=== PATIENT | female | born 1995 | race African-American/Black ===

== ENCOUNTER 2018-04-30 13:47 | Outpatient (CLI) | payer MEDICAID ==
[~2018-04-30 13:47] MED LIST: FERRIC CARBOXYMALTOSE 750 MG in NORMAL SALINE 250 ML IV PRN
[2018-04-30 14:08] VITALS: BP 114/68
== END 2018-04-30 15:45 | disposition home or self-care (01) ==
LOC: II 13:47 → 5TH 13:52 → II 15:45
PROVIDERS: ATTEND Obstetrics & Gynecology Gynecology
DX: O99.013 Anemia complicating pregnancy, third trimester (principal); Z3A.00 Weeks of gestation of pregnancy not specified
CPT/HCPCS: 96367; G0008; J7050; J1439; 90471

== ENCOUNTER 2018-05-07 13:50 | Outpatient (CLI) | payer MEDICAID ==
[2018-05-07 14:08] VITALS: BP 100/50
== END 2018-05-07 14:38 | disposition home or self-care (01) ==
LOC: II 13:50 → 5TH 14:01 → II 14:38
PROVIDERS: ATTEND Obstetrics & Gynecology Gynecology
PROC: 3E033GC Introduction of Other Therapeutic Substance into Peripheral Vein, Percutaneous Approach (ICD-10-PCS; principal; 2018-05-07)
DX: O99.013 Anemia complicating pregnancy, third trimester (principal)
CPT/HCPCS: 96365; J7050; J1439

== ENCOUNTER 2018-05-27 05:33 | Inpatient (IN) | payer MEDICAID ==
[2018-05-24 10:41] LABS: APPEARANCE,URINE SLIGHTLY-CLOUDY; BILIRUBIN,URINE NEGATIVE (NEGATIVE); COLOR,URINE YELLOW; GLUCOSE, URINE NEGATIVE (NEGATIVE); KETONES,URINE NEGATIVE (NEGATIVE); LEUKOCYTE ESTERASE,URINE TRACE (NEGATIVE); NITRITE,URINE NEGATIVE (NEGATIVE); PROTEIN,URINE NEGATIVE (NEGATIVE); URINE SPECIFIC GRAVITY 1.013; UROBILINOGEN,URINE NEGATIVE mg/dL (<2.0)
[2018-05-24 11:18] LABS: URINE AMPHETAMINES SCREEN NEGATIVE; URINE BARBITURATES SCREEN NEGATIVE; URINE BENZODIAZEPINES SCREEN NEGATIVE; URINE COCAINE SCREEN NEGATIVE; URINE MARIJUANA (THC) SCREEN NEGATIVE; URINE METHADONE SCREEN NEGATIVE; URINE PHENCYCLIDINE SCREEN NEGATIVE
[2018-05-24 12:23] LABS: CHLAM PCR NOT DETECTED (NOT DETECT); GON PCR NOT DETECTED (NOT DETECT)
[2018-05-25 11:05] LABS: ABSOLUTE EOSINOPHILS # (AUTO) 0.1 10^3/uL (0.0-0.6); ABSOLUTE LYMPHOCYTES (AUTO) 1.5 10^3/uL (0.5-4.7); ABSOLUTE MONOCYTES (AUTO) 0.6 10^3/uL (0.1-1.4); ABSOLUTE NEUT (AUTO) 3.6 10^3/uL (1.7-8.2); BASOPHILS % (AUTO) 0.5 % (0-2); EOSINOPHILS % (AUTO) 1.5 % (0-6); HEMATOCRIT 33.1 % (36.0-47.0); HEMOGLOBIN 10.7 g/dL (12.0-15.5); LYMPHOCYTES % (AUTO) 25.2 % (13-45); MEAN CORPUSCULAR HEMOGLOBIN 25.4 pg (27.0-33.4); MEAN CORPUSCULAR HGB CONC 32.4 g/dL (32.0-36.0); MEAN CORPUSCULAR VOLUME 79 fl (80-97); MONOCYTES % (AUTO) 11.1 % (3-13); PLATELET COUNT 220 10^3/uL (150-450); RED BLOOD COUNT 4.22 10^6/uL (3.72-5.28); RED CELL DISTRIBUTION WIDTH 21.8 % (11.5-14.0); SEGMENTED NEUTROPHILS % (AUTO) 61.7 % (42-78); TOTAL CELLS COUNTED % (AUTO) 100 %; WHITE BLOOD COUNT 5.8 10^3/uL (4.0-10.5)
[~2018-05-27 05:33] MED LIST changes: -FERRIC CARBOXYMALTOSE 750 MG in NORMAL SALINE 250 ML IV PRN; +LACTATED RINGERS 1000 ML IV PRN; +LIDOCAINE 0.5% INJ-PF (5 MG/ML) 50 ML SDV SUBCUT PRN
[2018-05-27] MEDS ORDERED: CEFAZOLIN 1 GM/D5W RTU 1 GM/50 ML RTUPB IV ONE (05:42)
[2018-05-27] MEDS ORDERED: FENTANYL CITRATE INJ/PF 100 MCG/2 ML AMPUL ONE (07:33)
[2018-05-27] MEDS ORDERED: OXYTOCIN 10 UNIT/ML VIAL ONE (07:33)
[2018-05-27] MEDS ORDERED: OXYTOCIN/NORMAL SALINE 20 UNIT/1,000 ML RTUINJ ONE (07:34)
[2018-05-27] MEDS ORDERED: MORPHINE SULFATE 10 MG/ML INJ ONE (07:34)
[2018-05-27] MEDS ORDERED: MIDAZOLAM 2 MG/2 ML INJ ONE (07:34)
[2018-05-27] MEDS ORDERED: ONDANSETRON HCL INJ/PF 4 MG/2 ML SDV ONE (07:34)
[2018-05-27] MEDS ORDERED: BUPIVACAINE HCL/DEX-WATER/PF 15 MG/2 ML AMPULE ONE (07:40)
[2018-05-27] MEDS ORDERED: FENTANYL CITRATE INJ/PF 100 MCG/2 ML AMPUL IV PRN ×3 (08:17)
[2018-05-27] MEDS ORDERED: MEPERIDINE HCL/PF INJ 25 MG/1 ML DISP.SYRIN IV PRN (08:17)
[2018-05-27] MEDS ORDERED: PROMETHAZINE HCL INJ 25 MG/1 ML VIAL IV PRN ×3 (08:17→09:01)
[2018-05-27] MEDS ORDERED: DIPHENHYDRAMINE HCL 50 MG/ML VIAL IV PRN (08:17)
[2018-05-27] MEDS ORDERED: MORPHINE SULFATE 10 MG/ML INJ IV PRN (08:17)
[2018-05-27] MEDS ORDERED: ACETAMINOPHEN 1,000 MG/100 ML RTUPB IV PRN (09:01)
[2018-05-27] MEDS ORDERED: MEASLES,MUMPS&RUBELLA VACC/PF 0.5 ML VIAL SUBCUT PRN (09:01)
[2018-05-27] MEDS ORDERED: DIPH/PERTUSS(ACELL)/TETANUS VAC/PF 0.5 ML SYR (>=10YO) IM PRN (09:01)
[2018-05-27] MEDS ORDERED: OXYCODONE-ACETAMINOPHEN 5-325 MG TABLET PO PRN (09:01)
[2018-05-27] MEDS ORDERED: OXYTOCIN/NORMAL SALINE 20 UNIT/1,000 ML RTUINJ IV PRN (09:01)
[2018-05-27] MEDS ORDERED: SIMETHICONE 80 MG TAB.CHEW PO PRN (09:01)
[2018-05-27] MEDS ORDERED: RINGERS SOLUTION,LACTATED 1,000 ML IV PRN (09:01)
[2018-05-27] MEDS ORDERED: ACETAMINOPHEN 325 MG TABLET PO PRN (09:01)
[2018-05-27] MEDS ORDERED: ACETAMINOPHEN 1,000 MG/100 ML RTUPB IV ONE (09:38)
[2018-05-27] MEDS ORDERED: MEPERIDINE HCL/PF INJ 25 MG/1 ML DISP.SYRIN ONE (10:40)
--- NOTE | 2018-05-27 11:11 | PDOC DELIVERY SUMMARY ---
Delivery Summary - Maternal Hx : V Hx Para: II Hx # Term Pregnancies: 2 Hx # Pregnancies: 0 Hx Total # of Abortions (Sponateous & Elective): 2 CRIS: 05/30/18 Gestational Age: 39.2 Risk Factors: Previous Ruptured Membranes: AROM Fluids: Clear - Delivery Labor: Not In Labor Presentation: Vertex Heart Rate Monitoring: Done Pre-Operatively Support Person Present: Yes Location: OR : Scheduled Placenta: Within Normal Limits Delivery of Placenta Date: 05/27/18 Delivery of Placenta Time: 08:10 - Medications Type of Anesthesia:: Spinal - Assess and Care Baby 1 Male Delivery of Infant Date: 05/27/18 Delivery of Infant Time: 08:10 at 1 minute: 8 at 5 minutes: 9 Preprinted Number On Band: [id number] Infant Skin to Skin: Yes Skin to Skin (Mins): 5 To Nursery At: 08:21 Mode of Transport: Bassinet Delivery Weight: 3,305 Delivery Length: 19.75 in - Delivery Personnel Sales Promotion Manager: TISH MUJICA Nursery RN: TOMER IRVING Nursery RN: SUMIT RN: SCOTT MCLEOD MD: DIPAK HALL
[2018-05-27] MEDS: PRENATAL VITAMIN W DHA CAPSULE PO SCH (11:42)
[2018-05-27] MEDS: DOCUSATE SODIUM 100 MG CAPSULE PO SCH ×2 (11:43→17:15)
[2018-05-27] MEDS: KETOROLAC TROMETHAMINE INJ/PF 30 MG/1 ML SDV IV SCH ×2 (11:50→17:15)
[2018-05-27] MEDS: MORPHINE SULFATE 10 MG/ML INJ IV PRN ×2 (11:51→22:22)
--- NOTE | 2018-05-27 12:02 | OPERATIVE REPORT E ---
Operative Report NAME: JOEL JOSE : 1995 AGE: 22Y DATE OF SURGERY: 05/27/2018 ROOM: 212 PREOPERATIVE DIAGNOSES: 1. IUP at 39 weeks and 2 days. 2. Previous x2. POSTOPERATIVE DIAGNOSES: 1. IUP at 39 weeks and 2 days. 2. Previous x2. SURGEON: DIPAK HALL M.D. ANESTHESIA: Dr. Bergman with spinal. FINDINGS: Male in cephalic presentation with Apgars of 8 and 9. Very thin lower uterine segment constituting a uterine window. The fascia was also very thin. Bladder flap was adhered high on the lower uterine segment as well. COMPLICATIONS: None. ESTIMATED BLOOD LOSS: 600 mL. SPECIMENS REMOVED: None. PROCEDURE: A low transverse hysterotomy section, repeat. PROCEDURE IN DETAIL: The patient was taken to the operating room and prepared and draped in a normal sterile fashion in the supine position with a leftward tilt. A transverse skin incision was made with a scalpel following the patient's previous scar and the underlying layer of fascia was nicked in the center with a scalpel and extended laterally with Painter's. The fascia was dissected from the rectus muscle sharply with Painter's and the rectus muscle was divided bluntly. The peritoneal cavity was entered bluntly with surgeon finger fracture. The bladder blade was inserted. The uterine window was noted. The bladder was dissected away from the lower uterine segment using Metzenbaum's and blunt dissection. The bladder blade was reinserted. The hysterotomy was nicked with a scalpel and extended laterally with surgeon finger fracture. The infant was then delivered atraumatically. The nose and mouth were suctioned with a suction bulb and the cord was clamped and cut and handed off to awaiting pediatricians. Cord blood was collected. The placenta was removed manually. The uterus was exteriorized and cleared of clots and debris. The hysterotomy was closed with 0 Monocryl in a running, locked fashion and a second layer of the same suture was used to imbricate to ensure hemostasis. The uterus was returned to the abdomen. The hysterotomy was covered with a layer of Interceed to help prevent further adhesions. The rectus muscle and peritoneum were reapproximated with a mattress stitch of 2-0 Chromic. The fascia was closed with 0 Vicryl. The subcutaneous layer was closed with plain catgut and the skin was closed with 4-0 Vicryl. The patient tolerated the procedure well. Sponge, lap, and needle counts were correct x2 and the patient was taken to recovery in stable condition. DICTATING PHYSICIAN: DIPAK HALL M.D. [id number] PHY#: [id number] ID: [id number] JOB#: [id number] ACCT: [id number] cc:DIPAK HALL M.D. >
[2018-05-28] MEDS: OXYCODONE-ACETAMINOPHEN 5-325 MG TABLET PO PRN ×3 (02:10→19:17)
[2018-05-28] MEDS: KETOROLAC TROMETHAMINE INJ/PF 30 MG/1 ML SDV IV SCH (02:10)
[2018-05-28 06:28] LABS: HEMATOCRIT 32.8 % (36.0-47.0); HEMOGLOBIN 10.5 g/dL (12.0-15.5); MEAN CORPUSCULAR HEMOGLOBIN 25.3 pg (27.0-33.4); MEAN CORPUSCULAR HGB CONC 32.1 g/dL (32.0-36.0); MEAN CORPUSCULAR VOLUME 79 fl (80-97); PLATELET COUNT 200 10^3/uL (150-450); RED BLOOD COUNT 4.17 10^6/uL (3.72-5.28); RED CELL DISTRIBUTION WIDTH 21.3 % (11.5-14.0); WHITE BLOOD COUNT 9.5 10^3/uL (4.0-10.5)
--- NOTE | 2018-05-28 09:25 | PDOC PROGRESS REPORT ---
Subjective-OB Progress Note for:: 05/28/18 - POD #1 s/p Rpt . Doing well, no complaints. , Physical Exam (OB) Vital Signs: Temp Pulse Resp BP Pulse Ox 98.0 F 80 16 110/62 100 05/28/18 09:00 05/28/18 09:00 05/28/18 09:00 05/28/18 09:00 05/28/18 09:00 Intake & Output 05/27/18 05/28/18 05/29/18 06:59 06:59 06:59 Intake Total 1408 Output Total 1945 Balance -537 Weight 65.1 kg 61.7 kg - General General Appearance: Appears well, Alert In distress: None - PIH/Pre-Eclampsia DTR's: 1 + Clonus: Negative Headache: Absent Epigastric Pain: No Visual Changes: No - Dressing Removed: No Incision: Dressing, Well Approximated Closure Type: Surgical Glue - Lochia Lochia Amount: Small 10-25 ml Lochia Color: Rubra/Red - Abdomen Description: Tender, Soft, Round Hernia Present: No Fundal Description: Firm, Midline Fundal Height: u/3 - u/4 Abdomen Note: +bowel sounds - Respiratory Respiratory Status: No respiratory distress Breath sounds: Clear Chest Palpation: Normal - Cardiovascular Rhythm: Regular Heart Sounds: Normal auscultation - Abdominal Inspection: Normal Distension: No distension Tenderness: Nontender Organomegaly: No organomegaly - Genitourinary Genitourinary Note: voiding - Extremities Upper extremity: Normal inspection Lower extremities: Normal inspection - Neurological Cognition: Normal Orientation: AAOx4 - Psychological Associated symptoms: Normal affect, Normal mood - Skin Skin Temperature: Warm Skin Moisture: Dry Objective-Diagnostic Laboratory: 05/28/18 06:20 05/28/18 06:20 WBC 9.5 RBC 4.17 Hgb 10.5 L Hct 32.8 L MCV 79 L MCH 25.3 L MCHC 32.1 RDW 21.3 H Plt Count 200 Assessment and Plan(PN) - Assessment and Plan (1) Status post repeat low transverse section Is this a current diagnosis for this admission?: Yes (2) Normal course Is this a current diagnosis for this admission?: Yes - Time Spent with Patient Time with patient: Less than 15 minutes Medications reviewed and adjusted accordingly: Yes - Disposition Anticipated Discharge: Home Within: within 48 hours
[2018-05-28] MEDS: IBUPROFEN 800 MG TABLET PO SCH ×3 (10:36→21:21)
[2018-05-28] MEDS: PRENATAL VITAMIN W DHA CAPSULE PO SCH (10:36)
[2018-05-28] MEDS: DOCUSATE SODIUM 100 MG CAPSULE PO SCH ×2 (10:37→17:30)
[2018-05-29] MEDS: IBUPROFEN 800 MG TABLET PO SCH ×3 (03:42→14:18)
[2018-05-29] MEDS: OXYCODONE-ACETAMINOPHEN 5-325 MG TABLET PO PRN (03:43)
[2018-05-29] MEDS: DOCUSATE SODIUM 100 MG CAPSULE PO SCH (09:53)
[2018-05-29] MEDS: PRENATAL VITAMIN W DHA CAPSULE PO SCH (09:54)
--- NOTE | 2018-05-29 10:06 | PDOC DISCHARGE SUMMARY ---
Final Diagnosis Discharge Date: 05/29/18 - Final Diagnosis (1) Normal course Is this a current diagnosis for this admission?: Yes (2) Status post repeat low transverse section Is this a current diagnosis for this admission?: Yes Discharge Data - Discharge Medication Prescriptions: Oxycodone HCl/Acetaminophen [Percocet 5-325 mg Tablet] 1 tab PO Q4HP PRN #30 tablet PRN Reason: Ibuprofen [Motrin 800 mg Tablet] 800 mg PO Q8HP PRN #60 tablet PRN Reason: Home Medications: Vits96/Iron Fum/Folic [ Tablet] 1 each PO DAILY 10/01/13 Ferrous Sulfate [Iron] 325 mg PO DAILY 05/24/18 Ibuprofen [Motrin 800 mg Tablet] 800 mg PO Q8HP PRN #60 tablet 05/29/18 Oxycodone HCl/Acetaminophen [Percocet 5-325 mg Tablet] 1 tab PO Q4HP PRN #30 tablet 05/29/18 Reason(s) for Admission: Ceasarean Section-Repeat Procedures: NST Intrapartum Procedure(s): : Low Cervical, Transverse - Diagnosis Test Laboratory: Temp Pulse Resp BP Pulse Ox 98.2 F 82 16 105/72 97 05/29/18 08:26 05/29/18 08:26 05/29/18 08:26 05/29/18 08:26 05/29/18 08:26 05/24/18 05/25/18 05/28/18 10:15 10:00 06:20 RBC 4.22 4.17 Hgb 10.7 L 10.5 L Hct 33.1 L 32.8 L Urine Opiates Screen NEGATIVE - Discharge information/Instructions Discharge Activity: Activity As Tolerated, No Lifting Over 10 Pounds, Pelvic Rest, No tub bath Discharge Diet: Regular Disposition: HOME, SELF-CARE Follow up with: [facility] in: 5, Days
[2018-05-29 14:24] VITALS: BP 110/62
== END 2018-05-29 15:24 | disposition home or self-care (01) | DRG 788 ==
LOC: 2N 05:33
PROVIDERS: ADMIT Obstetrics & Gynecology; ATTEND Obstetrics & Gynecology
PROC: 4A1HXCZ Monitoring of Products of Conception, Cardiac Rate, External Approach (ICD-10-PCS; 2018-05-27)
PROC: 10D00Z1 Extraction of Products of Conception, Low, Open Approach (ICD-10-PCS; principal; 2018-05-27 07:45)
PROC: 3E0234Z Introduction of Serum, Toxoid and Vaccine into Muscle, Percutaneous Approach (ICD-10-PCS; 2018-05-29)
DX: O34.219 Maternal care for unspecified type scar from previous cesarean delivery (principal); O34.593 Maternal care for other abnormalities of gravid uterus, third trimester; O99.02 Anemia complicating childbirth; D64.9 Anemia, unspecified; Z3A.39 39 weeks gestation of pregnancy; Z37.0 Single live birth; Z23 Encounter for immunization
CPT/HCPCS: 1961; 36415; 80307; 81001; 85025; 85027; 86850; 86900; 86901; 87491; 87591; 90715; 94799; C1765; J0131; J0690; J1885; J2175; J2250; J2270; J2405; J2590; J3010; J3490; J7120

== ENCOUNTER 2018-09-26 08:31 | Day surgery (SDC) | payer MEDICAID ==
[2018-09-25 10:25] LABS: HEMATOCRIT 36.7 % (36.0-47.0); MEAN CORPUSCULAR HEMOGLOBIN 26.1 pg (27.0-33.4); MEAN CORPUSCULAR HGB CONC 32.6 g/dL (32.0-36.0); MEAN CORPUSCULAR VOLUME 80 fl (80-97); PLATELET COUNT 386 10^3/uL (150-450); RED BLOOD COUNT 4.57 10^6/uL (3.72-5.28); RED CELL DISTRIBUTION WIDTH 13.7 % (11.5-14.0); WHITE BLOOD COUNT 6.7 10^3/uL (4.0-10.5)
[2018-09-25 10:29] LABS: APPEARANCE,URINE CLEAR; BILIRUBIN,URINE NEGATIVE (NEGATIVE); COLOR,URINE YELLOW; GLUCOSE, URINE NEGATIVE (NEGATIVE); KETONES,URINE NEGATIVE (NEGATIVE); LEUKOCYTE ESTERASE,URINE NEGATIVE (NEGATIVE); NITRITE,URINE NEGATIVE (NEGATIVE); PROTEIN,URINE NEGATIVE (NEGATIVE); URINE SPECIFIC GRAVITY 1.012; UROBILINOGEN,URINE NEGATIVE mg/dL (<2.0)
[2018-09-26] MEDS ORDERED: HYDROMORPHONE HCL INJ/PF 2 MG/ML AMPULE ONE (09:59)
[2018-09-26] MEDS ORDERED: PROPOFOL INJ 200 MG/20 ML VIAL IV ONE (09:59)
[2018-09-26] MEDS ORDERED: MIDAZOLAM 2 MG/2 ML INJ ONE (09:59)
[2018-09-26] MEDS ORDERED: DEXAMETHASONE SOD PHOSPHATE INJ 4 MG/1 ML VIAL ONE (10:00)
[2018-09-26] MEDS ORDERED: ONDANSETRON HCL INJ/PF 4 MG/2 ML SDV ONE (10:00)
[2018-09-26] MEDS ORDERED: MEPERIDINE HCL/PF INJ 25 MG/1 ML DISP.SYRIN IV PRN (10:39)
[2018-09-26] MEDS ORDERED: MORPHINE SULFATE 10 MG/ML INJ IV PRN (10:39)
[2018-09-26] MEDS ORDERED: FENTANYL CITRATE INJ/PF 100 MCG/2 ML AMPUL IV PRN ×3 (10:39)
[2018-09-26] MEDS ORDERED: DIPHENHYDRAMINE HCL 50 MG/ML VIAL IV PRN (10:39)
[2018-09-26] MEDS ORDERED: OXYCODONE-ACETAMINOPHEN 5-325 MG TABLET PO PRN ×3 (10:39→12:00)
[2018-09-26] MEDS ORDERED: PROMETHAZINE HCL INJ 25 MG/1 ML VIAL IV PRN (10:39)
[2018-09-26] MEDS ORDERED: MORPHINE SULFATE 10 MG/ML INJ IM PRN (11:59)
[2018-09-26] MEDS ORDERED: IBUPROFEN 800 MG TABLET PO PRN (11:59)
[2018-09-26] MEDS ORDERED: IBUPROFEN 800 MG TABLET ONE (12:08)
[2018-09-26 13:02] VITALS: BP 106/74
[2018-09-26] MEDS ORDERED: SUCCINYLCHOLINE CHLORIDE INJ 200 MG/10 ML VIAL ONE (14:53)
--- NOTE | 2018-09-26 16:09 | OPERATIVE REPORT E ---
Operative Report NAME: JOEL JOSE : 1995 AGE: 23Y DATE OF SURGERY: 09/26/2018 ROOM: PREOPERATIVE DIAGNOSIS: UNDESIRED FERTILITY. POSTOPERATIVE DIAGNOSIS: UNDESIRED FERTILITY. OPERATION: Laparoscopic tubal cauterization with Kleppinger. SURGEON: DIPAK HALL M.D. IT APPLICATION ADMINISTRATOR: Katerina Ruvalcaba language assistant customer data technician. ANESTHESIA: Dr. River; general. FINDINGS: Normal uterus, tubes, and ovaries. Multiple bladder adhesions apparent from the patient's previous C-sections. COMPLICATIONS: None. ESTIMATED BLOOD LOSS: 10 mL. SPECIMENS REMOVED: None. PROCEDURE IN DETAIL: The patient was taken to the operating room and prepared and draped in a normal sterile fashion in the dorsal lithotomy position. Under sterile conditions, an in-and-out cath was performed of approximately 15 mL of clear urine. The sterile speculum was placed in the vagina. The cervix was prepped with Betadine. The cervix was grasped on the anterior lip with a single-toothed tenaculum and a Hulka clamp was placed through the cervix for uterine manipulation without difficulty. The tenaculum and speculum were removed and the gloves were changed and attention was turned to the upper portion of the case where an umbilical skin incision was made and a Veress needle was introduced through this incision. The peritoneal cavity placement was confirmed with free flow of sterile water through the Veress. The abdomen was inflated with approximately 2 L of CO2 gas and the Veress needle was removed and the 5 mm trocar was placed. The camera was introduced and the patient was placed in steep Trendelenburg. Under direct visualization, another 5 mm port was placed in the left lower quadrant. The Kleppinger was introduced. The bowel was swept away. Beginning with the left fallopian tube, this was grasped at the isthmus and this was cauterized approximately 3.5 cm using the Kleppinger until Occlusion was assured. This was repeated on the right fallopian tube without difficulty. The instruments were then removed. The abdomen was deflated through the umbilical port. Both trocars were removed and the skin was closed at both sites using 4-0 Vicryl. The Hulka clamp was then removed at the conclusion of the case. The patient tolerated the procedure well. Sponge, lap, and needle counts were correct x10. The patient was taken to recovery in stable condition. DICTATING PHYSICIAN: DIPAK HALL M.D. [id number] PHY#: [id number] ID: [id number] JOB#: [id number] ACCT: [id number] cc:DIPAK HALL M.D. >
== END 2018-09-26 12:55 | disposition home or self-care (01) ==
LOC: OROUT 08:31
PROVIDERS: ATTEND Obstetrics & Gynecology
DX: Z30.2 Encounter for sterilization (principal); D64.9 Anemia, unspecified; N32.89 Other specified disorders of bladder; Z32.02 Encounter for pregnancy test, result negative
CPT/HCPCS: 36415; 85027; 81005; 81025; 58670; J2250; J3490; J1100; J1170; J0330; J2405; J2704; 851